=== PATIENT | female | born 1955 | race Caucasian/White ===

== ENCOUNTER 2024-06-02 10:02 | Outpatient (CLI) | payer MEDICARE | END 2024-06-02 10:03 | disposition home or self-care (01) | LOC: CSHMAMMO 10:02 | PROVIDERS: ATTEND Family Medicine Sports Medicine | DX: Z87.39 Personal history of other diseases of the musculoskeletal system and connective tissue (principal); M85.89 Other specified disorders of bone density and structure, multiple sites | CPT/HCPCS: 77080 ==